=== PATIENT | female | born 1985 | race Caucasian/White ===

== ENCOUNTER 2019-02-05 08:07 | Inpatient (IN) | payer BC ==
[~2019-02-05] VITALS: Ht 165.1 cm; Wt 73.5 kg
[2019-02-05 08:14] VITALS: BP 126/79; PULSE 100; RESP 18; Ht 165.1 cm; Wt 73.5 kg
--- NOTE | 2019-02-05 08:23 | TRIAGE ---
OB Triage Datetime Report Generated by CPN: 02/05/2019 08:23 Datetime: 02/05/2019 08:20 EGA: 39.6 Datetime: 02/05/2019 08:17 Vaginal Exam Dilatation (cms): 4.0 Effacement (%): 100 Station: -2 Exam By: dario Vaginal Bleeding: Normal Show Cervix, Consistency: Soft Cervix, Position: Midposition Presentation 'A': Cephalic Datetime: 02/05/2019 08:11 Assessment Type: Triage Maternal Assessment Level of Consciousness: Keenly Alert, Responsive DTR's/Clonus: DTRs 2+; No Clonus Headache: Denies Blurred Vision: No Respiratory Effort: Unlabored; Regular Rhythm; Equal Expansion Breath Sounds, Left: Clear and Equal Breath Sounds, Right: Clear and Equal Nausea/Vomiting: Denies RUQ Epigastric Pain: Denies Lower Extremities Edema: None Degree: None Upper Extremities Edema: None Degree: None Facial Edema: None Fall Risk Assessment History of Falling: (0) No Secondary Diagnosis: (0) No Ambulatory Aid: (0) Bedrest/Nurse Assist IV Therapy: (0) No Gait: (0) Normal/Bedrest/Immobile Mental Status: (0) Oriented to Own Ability Fall Score: 0 Fall Risk Score Definition: No Risk: No action required Datetime: 02/05/2019 08:09 Time of Arrival: 02/05/2019 07:58 Arrived By: Ambulatory Arrived From: Home Chief Complaint: PT. HERE C/O UC'S Movement: Present Contractions: Irregular Rupture of Membranes: Denies Vaginal Bleeding: Scant Vaginal Discharge: Denies Recent Sexual Intercouse: Yes Abdominal Trauma: Not Applicable Patient Complaints: Contractions; Cramping; Back Pain Time Provider Notified: 02/05/2019 08:20 Provider Notified: REICHE Initial Plan: EFM/SVE Datetime: 02/05/2019 08:08 Labor Evaluation Monitor Mode: External Heart Rate Monitor Mode: External US
[2019-02-05] MEDS ORDERED: LACTATED RINGER'S 1,000 ML IV PRN (10:42)
[2019-02-05] MEDS ORDERED: CARBOPROST 250 MCG INJ IM PRN ×2 (11:00→22:30)
[2019-02-05] MEDS ORDERED: LIDOCAINE 1% (MPF) 30 ML INJ INJ PRN (11:00)
[2019-02-05] MEDS ORDERED: IBUPROFEN 600 MG TAB PO PRN (11:00)
[2019-02-05] MEDS ORDERED: OXYTOCIN 30 UNITS/LR 500 ML IV PRN ×2 (11:00→22:30)
[2019-02-05] MEDS ORDERED: OXYTOCIN 30 UNITS/LR 500 ML IV SCH ×4 (11:00→22:30)
[2019-02-05] MEDS ORDERED: MISOPROSTOL 200 MCG TAB PR PRN ×2 (11:00→22:30)
[2019-02-05] MEDS ORDERED: MINERAL OIL LIGHT 10 ML VIAL TOP ONE (11:00)
[2019-02-05] MEDS ORDERED: NACL 0.9% 3 ML SYG IV PRN (11:00)
[2019-02-05] MEDS ORDERED: BUTORPHANOL 2 MG INJ IV PRN ×2 (11:00)
[2019-02-05] MEDS ORDERED: METHYLERGONOVINE 0.2 MG INJ IM PRN ×2 (11:00→22:30)
[2019-02-05] MEDS: LACTATED RINGER'S 1,000 ML IV SCH ×3 (11:17→20:32)
[2019-02-05] MEDS ORDERED: ONDANSETRON 4 MG INJ IV PRN (14:30)
[2019-02-05] MEDS ORDERED: FENTAnyl 2MCG/ML-ROPIV 0.2% 100 ML BAG EPI SCH (14:30)
[2019-02-05] MEDS ORDERED: DIPHENHYDRAMINE 50 MG INJ IV PRN (14:30)
[2019-02-05] MEDS ORDERED: NALOXONE (0.4 MG/ML) INJ IV PRN (14:30)
--- NOTE | 2019-02-05 14:30 | PREAC ---
Date/Time of Note Date/Time of Note DATE: 02/05/19 TIME: 14:29 Anesthesia Eval and Record Evaluation Time Pre-Procedure Interview DATE: 02/05/19 TIME: 14:29 Age 34 Sex female NPO: 8 hrs Preoperative diagnosis IUP Planned procedure L&D Epidural Past Medical History Past Medical History: Includes GI: Obesity : : Surgery & Anesthesia Issues No known issue Meds Anticoagulation: No Beta Filemon within 24 hr: No Reason Beta Filemon not given: Pt. not on B-Filemon Current Medications Lactated Ringer's 1,000 ml @ 125 mls/hr Q8H IV Last administered on 02/05/19at 12:29; Admin Dose 125 MLS/HR; Start 02/05/19 at 10:42 IV Flush (NS 3 ml) 3 ml PER PROTOCOL PRN IV SLEEP; Start 02/05/19 at 11:00 Butorphanol Tartrate (Stadol) 1 mg Q2H PRN IV .PAIN SCALE 1-5; Start 02/05/19 at 11:00 Butorphanol Tartrate (Stadol) 2 mg Q2H PRN IV .PAIN SCALE 6-10; Start 02/05/19 at 11:00 Lidocaine (Xylocaine 1% (Mpf)) 30 ml ONCE PRN INJ .EPISIOTOMY; Start 02/05/19 at 11:00 Oxytocin/Lactated Ringer's 500 ml @ 500 mls/hr ONCE POST IV ; Start 02/05/19 at 11:00 Oxytocin/Lactated Ringer's 500 ml @ 125 mls/hr POST IV ; Start 02/05/19 at 11:00 Ibuprofen (Motrin) 600 mg ONCE PRN PO .PAIN 1-5; Start 02/05/19 at 11:00 Lactated Ringer's 1,000 ml @ 2,000 mls/hr Q30M PRN IV .ANESTHESIA; Start 02/05/19 at 10:42 Oxytocin/Lactated Ringer's 500 ml @ 0 mls/hr ONCE PRN IV .VAGINAL BLEEDING; Start 02/05/19 at 11:00 Methylergonovine Maleate (Methergine) 0.2 mg ONCE PRN IM .VAGINAL BLEEDING; Start 02/05/19 at 11:00 Carboprost Tromethamine (Hemabate) 250 mcg ONCE PRN IM .VAGINAL BLEEDING; Start 02/05/19 at 11:00 Misoprostol (Cytotec) 1,000 mcg ONCE PRN MT .VAGINAL BLEEDING; Start 02/05/19 at 11:00 Meds reviewed: Yes Allergies Coded Allergies: progesterone (Verified Allergy, Mild, 02/05/19) rash Allergies Reviewed: Yes Labs/Studies Labs Reviewed: Reviewed by anesthesiologist Result Diagram: 02/05/19 1110 02/05/19 1111 Laboratory Tests 02/05/19 11:10 02/05/19 11:11 Blood Bank Test 02/05/19 11:10 Antibody Screen NEGATIVE Blood Type A POSITIVE Rh Immune Globulin Candidate NO test: Positive Studies: ECG Pre-procedure Exam Last vitals Vital Signs Date Temp Pulse Resp B/P (MAP) Pulse Ox O2 O2 Flow FiO2 Time Delivery Rate 02/05/19 98.5 100 18 126/79 Room Air 08:14 (95) Airway: Adequate mouth opening, Adequate thyromental dist Mallampati: Mallampati II Teeth: Normal Lung: Normal Heart: Normal ASA Physical Status ASA physical status: 2 Emergency: None Planned Anesthetic Neuraxial: Epidural Planned Pain Management Epidural, Parenteral pain med Pre-operative Attestations Prior to commencing anesthesia and surgery, the patient was re-evaluated, there was verification of: *The patient's identity *The results of appropriate recent lab work and preoperative vital signs *The above evaluation not changing prior to induction *Anesthetic plan, risk benefits, alternative and complications discussed with patient/family; questions answered; patient/family understands, accepts and wishes to proceed. XIMENA DUBON MD Feb 05, 2019 14:30
[2019-02-05] MEDS ORDERED: FENTAnyl 2MCG/ML-ROPIV 0.2% 100 ML ONE (14:32)
--- NOTE | 2019-02-05 14:33 | HP ---
Date/Time of Note Date/Time of Note DATE: 02/05/19 TIME: 14:30 OB - History Hx of Present Free Text/Dictation 34 y.o. G1 with an IUP at 39w 6d came in today in active labor with an initial exam of 90%/4 cm and with intact membranes. Estimated Due Date: Feb 06, 2019 : 1 Para: 0 Care: Good Care Ultrasounds: Normal mid trimester US Obstetrical Complications: None Medical Complications: None Other Concerns: PMHx: none. PSHx: [place] teeth only. All: Progesterone. Past Family/Social History * Past Medical, Surgical, Family and Obstetric Histories reviewed from chart. Blood Type: A+ Rubella: immune RPR/VDRL: Negative GBS Status: Negative HBsAG: Negative OB Admission Exam Vital Signs Vital Signs Vital Signs Date Temp Pulse Resp B/P (MAP) Pulse Ox O2 O2 Flow FiO2 Time Delivery Rate 02/05/19 98.5 100 18 126/79 Room Air 08:14 (95) Physical Exam HEENT: WNL Heart: Rhythm Normal Lungs: Clear Abdomen: WNL Extremities: Normal Reflexes: Normal Cervical Dilatation: 4cm Effacement: Other (90%) Station: -2 Membranes: Intact Amniotic Fluid: Clear Heart Rate: 140's Accelerations: Accelerations Present Decelerations: No Decelerations Varibility: Moderate Contractions on Admission: < 5 Minutes Apart Intensity: Firm Last 72 hours Lab Results CBC & BMP 02/05/19 11:10 02/05/19 11:11 Liver Function Test 02/05/19 11:11 Alanine Aminotransferase (ALT/SGPT) 27 Albumin 3.3 Alkaline Phosphatase 155 H Aspartate Amino Transf (AST/SGOT) 27 Direct Bilirubin 0.00 Total Protein 6.1 OB Assessment/Plan Reason for admission: active labor Plan: Expectant Management CHACE JACOBO MD Feb 05, 2019 14:32
--- NOTE | 2019-02-05 22:01 | PAC ---
Date/Time of Note Date/Time of Note DATE: 02/05/19 TIME: 22:00 Post-Anesthesia Notes Post-Anesthesia Note Last documented vital signs Vital Signs Date Temp Pulse Resp B/P (MAP) Pulse Ox O2 O2 Flow FiO2 Time Delivery Rate 02/05/19 98.5 100 18 126/79 Room Air 08:14 (95) Activity: WNL Respiratory function: WNL Cardiovascular function: WNL Mental status: Baseline Pain reasonably controlled: Yes Hydration appropriate: Yes Nausea/Vomiting absent: Yes Comments BP:118/67, P;78, Spo2:100%, T:98,9 XIMENA DUBON MD Feb 05, 2019 22:01
[2019-02-05] MEDS: LACTATED RINGER'S 1,000 ML IV* SCH (22:30)
[2019-02-05] MEDS ORDERED: LANOLIN HPA 1 PKT TOP PRN (22:30)
[2019-02-05] MEDS ORDERED: BENZOCAINE 20% 56 ML SPRAY TOP PRN (22:30)
--- NOTE | 2019-02-05 22:30 | LDN ---
Date/Time of Note Date/Time of Note DATE: 02/05/19 TIME: 22:27 Delivery Summary of a viable baby boy weighing 2880 grams or 6# 6 oz, 19.5" long, and with Apgars of 8/9. Weeks of Gestation 39w 6d Placenta Delivered: Spontaneously Meconium: none Episiotomy: No Perineal laceration: 0 Laceration repair: 1st degree larger right labial laceration, and much small left labial laceration all repaired with 3-0 chromic. Anesthesia type: Epidural Estimated blood loss: 150 Sponge & Needle done & correct: Yes All needle counts correct: Yes Any foreign bodies felt in the: No (vagina) Infant Delivery Information Sex Sex: male Apgars 1 Minute: 8 5 Minute: 9 Suctioning Nose & mouth suctioned at livier: Yes Delee suction performed: No Umbilical Cord Umbilical cord with: 3 Vessels Cord presentations: nuchal cord (tight) Nuchal cord present X: 1 Cord Blood was obtained: Yes Mother & Baby Disposition Disposition Mom & Baby to Maternity; Good: Yes Baby to NICU: No CHACE JACOBO MD Feb 05, 2019 22:30
[2019-02-06] VITALS: BP 126/67; PULSE 90; RESP 18
[2019-02-06] MEDS: IBUPROFEN 600 MG TAB PO SCH ×4 (01:01→17:52)
[2019-02-06] MEDS: HYDROCODONE/APAP (5/325) TAB PO PRN ×3 (03:16→09:29)
[2019-02-06 04:00] VITALS: BP 117/65; PULSE 86; RESP 18
[2019-02-06] MEDS: LACTATED RINGER'S 1,000 ML IV* SCH ×3 (06:30→22:30)
[2019-02-06 09:29] VITALS: BP 110/78; PULSE 100; RESP 18
--- NOTE | 2019-02-06 17:01 | QN ---
Documentation Comment PPD #1 Pt is doing very well. The baby is still having issues latching although is very interested in figuring it out. linux consultant has already been called. T=98.3 BP 110/78 Fundus is firm. Lochia minimal. Ext NT, no edema. CBC in AM. P: Continue care and plan d/c tomorrow. CHACE JACOBO MD Feb 06, 2019 17:01
[2019-02-06 18:21] VITALS: BP 124/68; PULSE 85; RESP 18
[2019-02-06 19:45] VITALS: BP 108/59; PULSE 94; RESP 18
[2019-02-07] MEDS: IBUPROFEN 600 MG TAB PO SCH ×3 (00:10→11:45)
[2019-02-07 04:35] VITALS: BP 104/57; PULSE 53; RESP 18
[2019-02-07] MEDS: LACTATED RINGER'S 1,000 ML IV* SCH (06:30)
[2019-02-07 07:50] VITALS: BP 126/70; PULSE 84; RESP 18
[2019-02-07] MEDS ORDERED: DIPHTH/TET/ACEL PERTUSS (ADULT) 0.5 ML VIAL IM* ONE (09:00)
--- NOTE | 2019-02-07 14:50 | DS ---
Date/Time of Note Date/Time of Note DATE: 02/07/19 TIME: 14:49 Obstetrical Discharge Record Final Diagnosis Final Diagnosis: Term delivered Vaginal Delivery Obstetrical Delivery: Spontaneous, Laceration, Repaired Complications Augmentation: Yes Induction: No Condition on Discharge Physical Assessment Last Vitals: T=98.7 BP 126/70 Voiding: Yes Bowel Movement: Yes Breast: Filling Fundus: Firm Calf Tenderness: No Patient Condition: Good CHACE JACOBO MD Feb 07, 2019 14:50
--- NOTE | 2019-02-07 14:51 | PD.PPDC ---
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
--- NOTE | 2019-02-08 15:36 | DELSUM ---
Delivery Summary A-C Datetime Report Generated by CPN: 02/08/2019 15:36 DELIVERY PERSONNEL Sanitation Engineer: [place], Brenda Jeanine MATERNAL INFORMATION Delivery Anesthesia: Epidural Medications in Delivery: LR WITH 30 UNITS OF PITOCIN Delivery QBL (ml): 150 Placenta Cultured: No Maternal Complications: None LABOR SUMMARY EDC: 02/06/2019 00:00 No. Babies in Womb: 1 Attempted: No Labor Anesthesia: Epidural LABOR INFORMATION Reason for Induction: Not Applicable Onset of Labor: 02/05/2019 02:00 Complete Dilatation: 02/05/2019 21:08 Oxytocin: N/A Group B Beta Strep: Negative Antibiotics # of Doses: 0 Steroids Given: None Reason Steroids Not Administered: Not Applicable MEMBRANES Membranes Rupture Method: Spontaneous Rupture of Membranes: 02/05/2019 19:20 Length of Rupture (hr): 2.47 Amniotic Fluid Color: Bloody Amniotic Fluid Amount: Moderate Amniotic Fluid Odor: Normal STAGES OF LABOR Stage 1 hr: 19 Stage 1 min: 8 Stage 2 hr: 0 Stage 2 min: 40 Stage 3 hr: 0 Stage 3 min: 3 Total Time in Labor hr: 19 Total Time in Labor min: 51 VAGINAL DELIVERY Episiotomy: None Laceration Extension: First Degree Laceration Type: Perineal Laceration Repair: Yes Initial Vag Sponge Count: 10 Final Vag Sponge Count: 10 Initial Vag Sharps Count: 1 Final Vag Sharps Count: 3 BABY A INFORMATION Delivery Date/Time: 02/05/2019 21:48 Method of Delivery: Vaginal Born in Route : No : N/A Forceps: N/A Vacuum Extraction: N/A Shoulder Dystocia : N/A SHOULDER DYSTOCIA BABY A Delivery Date/Time: 02/05/2019 21:48 PRESENTATION/POSITION BABY A Presentation: Cephalic Cephalic Presentation: Vertex Vertex Position: Left Occipital Anterior Breech Presentation: N/A PLACENTA INFORMATION BABY A Placenta Delivery Time : 02/05/2019 21:51 Placenta Method of Delivery: Spontaneous Placenta Status: Delivered SCORES BABY A Heart Rate 1 min: >100 bpm Resp Effort 1 min: Good Cry Reflex Irritability 1 min: Cough/Sneeze/Pulls Away Muscle Tone 1 min: Active Motion Color 1 min: Blue/Pale Resuscitation Effort 1 min: Tactile Stimulation SCORE 1 MIN: 8 Heart Rate 5 min: >100 bpm Resp Effort 5 min: Good Cry Reflex Irritability 5 min: Cough/Sneeze/Pulls Away Muscle Tone 5 min: Active Motion Color 5 min: Body [place], Extremit Blue Resuscitation Effort 5 min: Tactile Stimulation SCORE 5 MIN: 9 INFANT INFORMATION BABY A Gestational Age at Delivery: 39.6 Gestational Status: Full Term- 39- 40.6 Weeks Outcome : Liveborn, with signs of life Infant Condition : Stable Sex: Male IDENTIFICATION/MEDS BABY A ID Band Number: [id number] ID Band Location: Right Leg; Left Arm Sensor Applied: Yes Sensor Number: [id number] Sensor Location : Cord Clamp Vitamin K Given : Not Given Erythromycin Given: Not Given WEIGHT/LENGTH BABY A Infant Birthweight (gm): 2880 Infant Weight (lb): 6 Infant Weight (oz): 6 Length (in): 19.50 Length (cm): 49.53 CORD INFORMATION BABY A No. Cord Vessels: 3 Nuchal Cord : Around Neck x1, Tight Cord Blood Taken: Yes Infant Suction: Mouth; Nose ASSESSMENT BABY A Infant Complications: Multiple Variable Decels; Other Infant Complications- Other: arrythmia Physical Findings at Delivery: Within Normal Limits Respirations: Appears Normal Medical Records Tech/ALS Called : No Infant Care By: Yesenia Nixon Transferred To: Remains with Mother
== END 2019-02-07 15:20 | disposition home or self-care (01) | DRG 807 ==
LOC: OBT 08:07 → L-D 08:08 → OBT 08:20 → PP1 23:26
PROVIDERS: ADMIT Obstetrics & Gynecology; ATTEND Obstetrics & Gynecology
PROC: 10E0XZZ Delivery of Products of Conception, External Approach (ICD-10-PCS; principal; 2019-02-05)
PROC: 0HQ9XZZ Repair Perineum Skin, External Approach (ICD-10-PCS; 2019-02-05)
PROC: 4A1HXCZ Monitoring of Products of Conception, Cardiac Rate, External Approach (ICD-10-PCS; 2019-02-05)
DX: O70.0 First degree perineal laceration during delivery (principal); Z37.0 Single live birth; O69.1XX0 Labor and delivery complicated by cord around neck, with compression, not applicable or unspecified; Z3A.39 39 weeks gestation of pregnancy
CPT/HCPCS: 62322; 80053; 81001; 84560; 85025; 85384; 85610; 85730; 86592; 86850; 86900; 86901; 87340; 90715; 99464; G0463; J2590; J3010; J7120